=== PATIENT | male | born 1995 | race Caucasian/White ===

== ENCOUNTER 2022-08-01 08:34 | Emergency (ER) | payer SELFPAY ==
[2022-08-01] MEDS ORDERED: Orphenadrine Citrate 60 MG/2 ML VIAL ONE (09:01)
== END 2022-08-01 09:17 | disposition home or self-care (01) ==
LOC: MADERS 08:34
DX: M54.50 Low back pain, unspecified (principal); G89.29 Other chronic pain; F17.210 Nicotine dependence, cigarettes, uncomplicated; E03.9 Hypothyroidism, unspecified; Z79.899 Other long term (current) drug therapy
CPT/HCPCS: 96372; 99283; J2360